=== PATIENT | female | born 1975 | race Two or more races ===

== ENCOUNTER 2016-11-07 14:13 | Inpatient (IN) | payer BC, OTHER, SELFPAY ==
[~2016-11-07] VITALS: Ht 157.5 cm; Wt 38.0 kg
[2016-11-07] MEDS ORDERED: SODIUM CHLORIDE 0.9% 1,000 ML IV ONE (15:05)
[2016-11-07] MEDS ORDERED: SODIUM CHLORIDE FLUSH 10ML SYR IVF ONE (15:30)
[2016-11-07] MEDS ORDERED: SODIUM CHLORIDE 0.9% 1,000ML IVBOLUS ONE ×2 (15:30→17:00)
[2016-11-07 15:36] LABS: ASPARTATE AMINO TRANSFERASE 9 U/L (15-37); BLOOD UREA NITROGEN 13 mg/dL (7-18)
[2016-11-07] MEDS ORDERED: INSULIN SINGLE DOSE, ER SQ-INSULIN ONE (15:59)
[2016-11-07] MEDS ORDERED: INSULIN REGULAR 100 UNITS/ML, 3ML VIAL IVPush ONE (16:00)
[2016-11-07] MEDS ORDERED: OMNIPAQUE 350 MG/ML, 150 ML BOTTLE ONE (17:18)
[2016-11-07] MEDS ORDERED: PANTOPRAZOLE 40 MG IV ONE (17:58)
[2016-11-07] MEDS ORDERED: PANTOPRAZOLE 40 MG IV IVPush ONE (18:00)
[2016-11-07] MEDS ORDERED: SODIUM CHLORIDE 0.9% 1,000 ML IV SCH (19:01)
[2016-11-07 21:00] VITALS: BP 107/67
[2016-11-07] MEDS: ENOXAPARIN 40 MG/0.4 ML SQ SCH (22:33)
[2016-11-07] MEDS: INSULIN ASPART 100 UNITS/ML, PEN SQ-INSULIN SCH (22:34)
[2016-11-08 05:27] VITALS: BP 91/62
[2016-11-08 05:29] LABS: BLOOD UREA NITROGEN 8 mg/dL (7-18)
[2016-11-08 05:33] LABS: ASPARTATE AMINO TRANSFERASE 15 U/L (15-37)
[2016-11-08] MEDS ORDERED: MAGNESIUM SULFATE PMX 2GM/50ML 50 ML IV ONE ×2 (06:00→12:00)
[2016-11-08] MEDS: NS + 20MEQ KCL 1,000 ML IV SCH ×2 (06:14→20:32)
[2016-11-08 07:32] VITALS: BP 92/61
[2016-11-08] MEDS ORDERED: PANTOPRAZOLE 40 MG IV IVPush SCH (09:00)
[2016-11-08] MEDS: INSULIN ASPART 100 UNITS/ML, PEN SQ-INSULIN SCH ×4 (10:13→20:19)
[2016-11-08 13:12] VITALS: BP 95/63
[2016-11-08] MEDS: INSULIN DETEMIR 100 UNITS/ML, PEN SQ-INSULIN SCH (17:41)
[2016-11-08 19:00] VITALS: BP 94/62
[2016-11-08] MEDS: ENOXAPARIN 40 MG/0.4 ML SQ SCH (20:19)
[2016-11-08] MEDS ORDERED: POTASSIUM CHLORIDE 10 MEQ in SODIUM CHLORIDE 0.9% 1,000 ML IV SCH ×2 (20:53)
[2016-11-09 01:35] VITALS: BP 92/60
[2016-11-09] MEDS: INSULIN DETEMIR 100 UNITS/ML, PEN SQ-INSULIN SCH ×2 (02:51→21:16)
[2016-11-09] MEDS: NS + 20MEQ KCL 1,000 ML IV SCH (03:05)
[2016-11-09 06:09] LABS: ASPARTATE AMINO TRANSFERASE 10 U/L (15-37); BLOOD UREA NITROGEN 5 mg/dL (7-18)
[2016-11-09] MEDS: INSULIN ASPART 100 UNITS/ML, PEN SQ-INSULIN SCH ×4 (07:00→21:16)
[2016-11-09] MEDS ORDERED: MAGNESIUM SULFATE PMX 4GM/100M 100 ML IV ONE (08:00)
[2016-11-09] MEDS ORDERED: PROPOFOL 10 MG/ML, 20ML ONE (08:05)
[2016-11-09] MEDS ORDERED: ONDANSETRON 2MG/ML, 2ML IVPush PRN (08:30)
[2016-11-09] MEDS ORDERED: HYDROmorphone 1 MG/ML, 1ML IV PRN (08:30)
[2016-11-09] MEDS ORDERED: OXYcodone 5 MG/5 ML ORAL.SOL UDC PO PRN (08:30)
[2016-11-09] MEDS ORDERED: LABETALOL 5MG/ML, 20ML IV PRN (08:30)
[2016-11-09] MEDS ORDERED: MEPERIDINE/PF 25MG/0.5ML IVPush PRN (08:30)
[2016-11-09] MEDS ORDERED: FENTANYL PF 100 MCG/2ML IV PRN (08:30)
[2016-11-09] MEDS ORDERED: hydrALAzine 20 MG/ML, 1ML IV PRN (08:30)
[2016-11-09] MEDS ORDERED: MIDAZOLAM 1 MG/ML, 2ML IV PRN (08:30)
[2016-11-09 09:56] VITALS: BP 95/65
[2016-11-09] MEDS: FLUCONAZOLE 200 MG/100 ML 100 ML IV SCH (11:32)
[2016-11-09 14:49] VITALS: BP 102/70
[2016-11-09 19:30] VITALS: BP 94/68
[2016-11-09] MEDS: ENOXAPARIN 40 MG/0.4 ML SQ SCH (21:12)
[2016-11-10 02:12] VITALS: BP 90/62
[2016-11-10 05:39] LABS: BLOOD UREA NITROGEN 5 mg/dL (7-18)
[2016-11-10] MEDS ORDERED: NS + 40MEQ KCL 1,000 ML IV SCH (06:00)
[2016-11-10 06:29] VITALS: BP 90/59
[2016-11-10] MEDS: INSULIN ASPART 100 UNITS/ML, PEN SQ-INSULIN SCH ×4 (06:31→22:07)
[2016-11-10] MEDS ORDERED: MAGNESIUM SULFATE PMX 4GM/100M 100 ML IV ONE (07:30)
[2016-11-10] MEDS: PANTOPRAZOLE 40 MG IV IVPush SCH (08:22)
[2016-11-10] MEDS: INSULIN DETEMIR 100 UNITS/ML, PEN SQ-INSULIN SCH ×2 (08:23→22:07)
[2016-11-10] MEDS ORDERED: POTASSIUM PHOS 4.4 MEQ/ML IV SCH (09:00)
[2016-11-10] MEDS: POTASSIUM PHOSPHATE 30 MEQ in SODIUM CHLORIDE 0.9% 500 ML IV SCH ×2 (11:11→22:08)
[2016-11-10] MEDS: FLUCONAZOLE 200 MG/100 ML 100 ML IV SCH (12:30)
[2016-11-10 13:16] VITALS: BP 104/72
[2016-11-10] MEDS: ENOXAPARIN 40 MG/0.4 ML SQ SCH (20:15)
[2016-11-10] MEDS: NS + 40MEQ KCL 1,000 ML IV SCH (21:55)
[2016-11-10 22:30] VITALS: BP 105/73
[2016-11-11 04:45] VITALS: BP 92/57
[2016-11-11 05:19] LABS: BLOOD UREA NITROGEN 2 mg/dL (7-18)
[2016-11-11 05:22] LABS: ASPARTATE AMINO TRANSFERASE 23 U/L (15-37)
[2016-11-11] MEDS: NS + 40MEQ KCL 1,000 ML IV SCH (06:16)
[2016-11-11] MEDS: INSULIN ASPART 100 UNITS/ML, PEN SQ-INSULIN SCH ×4 (06:17→20:53)
[2016-11-11 07:22] VITALS: BP 94/61
[2016-11-11] MEDS ORDERED: FLUCONAZOLE 100 MG TABLET PO SCH (09:00)
[2016-11-11] MEDS: PANTOPRAZOLE 40 MG IV IVPush SCH (09:32)
[2016-11-11] MEDS: INSULIN DETEMIR 100 UNITS/ML, PEN SQ-INSULIN SCH ×2 (09:33→20:54)
[2016-11-11 14:47] VITALS: BP 104/70
[2016-11-11] MEDS ORDERED: MAGNESIUM SULFATE PMX 4GM/100M 100 ML IV ONE (17:30)
[2016-11-11] MEDS: FLUCONAZOLE 200 MG TABLET PO SCH (18:30)
[2016-11-11 19:38] VITALS: BP 94/70
[2016-11-11] MEDS: MAGNESIUM OXIDE 400 MG TABLET PO SCH (20:22)
[2016-11-11] MEDS: ENOXAPARIN 40 MG/0.4 ML SQ SCH (20:23)
[2016-11-11] MEDS ORDERED: INSULIN ASPART 100 UNITS/ML, PEN SQ-INSULIN ONE (21:30)
[2016-11-12 03:03] VITALS: BP 101/68
[2016-11-12] MEDS: INSULIN ASPART 100 UNITS/ML, PEN SQ-INSULIN SCH ×2 (06:29→11:52)
[2016-11-12 07:57] VITALS: BP 97/60
[2016-11-12] MEDS: PANTOPRAZOLE 40 MG IV IVPush SCH (08:46)
[2016-11-12] MEDS: FLUCONAZOLE 200 MG TABLET PO SCH (08:46)
[2016-11-12] MEDS: MAGNESIUM OXIDE 400 MG TABLET PO SCH (08:46)
[2016-11-12] MEDS: INSULIN DETEMIR 100 UNITS/ML, PEN SQ-INSULIN SCH (08:47)
[2016-11-12] MEDS ORDERED: FLUC200T PO (11:56)
[2016-11-12] MEDS ORDERED: OMEP40CA6 PO (11:57)
[2016-11-12] MEDS ORDERED: INSU100V8 SQ (11:57)
[2016-11-12] MEDS ORDERED: MAGN300C PO (11:57)
[2016-11-12] MEDS ORDERED: INSU100C5 SQ-INSULIN (11:58)
[2016-11-12 13:03] VITALS: BP 102/68
[2016-11-12] MEDS ORDERED: PNEUMOCOCCAL 23 VACCINE IM-VACC ONE (14:00)
== END 2016-11-12 13:40 | disposition home or self-care (01) | DRG 368 ==
LOC: ED 16:09 → EDIP 18:09 → 4NOR 20:42
PROVIDERS: ADMIT Internal Medicine; ATTEND Internal Medicine
PROC: 0DB68ZX Excision of Stomach, Via Natural or Artificial Opening Endoscopic, Diagnostic (ICD-10-PCS; principal; 2016-11-09 08:00)
DX: B37.81 Candidal esophagitis (principal); E43 Unspecified severe protein-calorie malnutrition; E87.1 Hypo-osmolality and hyponatremia; K22.10 Ulcer of esophagus without bleeding; E11.649 Type 2 diabetes mellitus with hypoglycemia without coma; E11.65 Type 2 diabetes mellitus with hyperglycemia; E83.42 Hypomagnesemia; E87.6 Hypokalemia; E87.8 Other disorders of electrolyte and fluid balance, not elsewhere classified; K31.7 Polyp of stomach and duodenum; R13.19 Other dysphagia; E83.39 Other disorders of phosphorus metabolism; F41.9 Anxiety disorder, unspecified; L65.9 Nonscarring hair loss, unspecified; D72.829 Elevated white blood cell count, unspecified; E86.0 Dehydration
CPT/HCPCS: 36415; 74022; 74220; 80048; 80053; 81003; 82010; 82803; 82947; 82962; 83036; 83605; 83690; 83735; 84100; 84443; 84703; 85025; 85379; 86480; 88305; 90732; 93005; 96361; 96374; 96375; J1650; J1815; J2704; J3480; Q9967; C9113; J1450; J3475; J7030; J7040; Q0177

== ENCOUNTER 2017-01-28 14:18 | Inpatient (IN) | payer OTHER ==
[~2017-01-28] VITALS: Ht 160 cm; Wt 39.0 kg
[~2017-01-28 14:18] MED LIST: FLUC200T PO; INSU100C5 SQ-INSULIN; INSU100V8 SQ; MAGN300C PO; OMEP40CA6 PO
[2017-01-28] MEDS ORDERED: SODIUM CHLORIDE FLUSH 10ML SYR IVF ONE (14:30)
[2017-01-28] MEDS ORDERED: MAGNESIUM SULFATE 1 GM in SODIUM CHLORIDE 0.9% 100 ML IV ONE (14:30)
[2017-01-28 15:02] LABS: HEMATOCRIT 43.7 % (34.6-47.8); HEMOGLOBIN 14.4 g/dL (11.7-16.4); WHITE BLOOD COUNT 9.6 x10^3/uL (3.4-10)
[2017-01-28 15:14] LABS: BLOOD UREA NITROGEN 14 mg/dL (7-18)
[2017-01-28] MEDS ORDERED: SODIUM CHLORIDE 0.9% 1,000 ML IV ONE (15:30)
[2017-01-28 15:32] LABS: HIV 1&2 ANTIBODY SCREEN Nonreactive (Nonreactive); HIV-1 p24 ANTIGEN Nonreactive (Nonreactive)
[2017-01-28] MEDS ORDERED: ACETAMINOPHEN 325 MG TABLET PO PRN (16:30)
[2017-01-28] MEDS ORDERED: MAGNESIUM SULFATE PMX 4GM/100M 100 ML IV ONE (16:30)
[2017-01-28] MEDS ORDERED: DEXTROSE 4 GM TAB.CHEW PO PRN (16:30)
[2017-01-28] MEDS ORDERED: hydrALAzine 20 MG/ML, 1ML IVPush PRN (16:30)
[2017-01-28] MEDS ORDERED: GLUCAGON 1 MG IM PRN (16:30)
[2017-01-28] MEDS ORDERED: INSULIN DETEMIR 100 UNITS/ML, PEN SQ-INSULIN SCH (16:30)
[2017-01-28] MEDS ORDERED: DEXTROSE 50%, 50ML SYRINGE IVPush PRN (16:30)
[2017-01-28 17:31] VITALS: BP 107/80
[2017-01-28] MEDS: NS + 20MEQ KCL 1,000 ML IV SCH (18:19)
[2017-01-28] MEDS: POTASSIUM CHLORIDE 20 MEQ TAB.ER.PRT PO SCH (18:21)
[2017-01-28 19:25] VITALS: BP 93/65
[2017-01-28 20:29] VITALS: BP 107/80
[2017-01-28] MEDS: SODIUM CHLORIDE FLUSH 10ML SYR IVF SCH (21:00)
[2017-01-28] MEDS: KETOCONAZOLE CRM 2%, 15GM TP SCH (21:25)
[2017-01-28] MEDS: INSULIN ASPART 100 UNITS/ML, PEN SQ-INSULIN SCH (21:25)
[2017-01-29 02:14] VITALS: BP 101/70
[2017-01-29 05:22] LABS: BLOOD UREA NITROGEN 10 mg/dL (7-18)
[2017-01-29] MEDS: NS + 20MEQ KCL 1,000 ML IV SCH ×2 (05:35→11:40)
[2017-01-29] MEDS ORDERED: MAGNESIUM SULFATE PMX 2GM/50ML 50 ML IV ONE (07:00)
[2017-01-29 07:08] VITALS: BP 107/68
[2017-01-29] MEDS: INSULIN ASPART 100 UNITS/ML, PEN SQ-INSULIN SCH ×2 (08:21→12:47)
[2017-01-29] MEDS: POTASSIUM CHLORIDE 20 MEQ TAB.ER.PRT PO SCH (08:21)
[2017-01-29] MEDS: SODIUM CHLORIDE FLUSH 10ML SYR IVF SCH (09:00)
[2017-01-29] MEDS: KETOCONAZOLE CRM 2%, 15GM TP SCH (09:00)
[2017-01-29] MEDS ORDERED: OMEPRAZOLE 20 MG CAPSULE.DR PO SCH (09:00)
[2017-01-29] MEDS ORDERED: MAGNESIUM OXIDE 400 MG TABLET PO SCH (09:00)
[2017-01-29] MEDS ORDERED: GLUCAGON 1 MG IM PRN (16:00)
[2017-01-29] MEDS ORDERED: hydrALAzine 20 MG/ML, 1ML IVPush PRN (16:00)
[2017-01-29] MEDS ORDERED: ACETAMINOPHEN 325 MG TABLET PO PRN (16:00)
[2017-01-29] MEDS ORDERED: DEXTROSE 50%, 50ML SYRINGE IVPush PRN (16:00)
[2017-01-29] MEDS ORDERED: SODIUM CHLORIDE FLUSH 10ML SYR IVF SCH (21:00)
== END 2017-01-29 19:07 | disposition home or self-care (01) | DRG 640 ==
LOC: ED 15:40 → EDIP 15:45 → ED 15:58 → 4WST 17:09
PROVIDERS: ADMIT Hospitalist; ATTEND Hospitalist
DX: E87.1 Hypo-osmolality and hyponatremia (principal); E43 Unspecified severe protein-calorie malnutrition; Z68.1 Body mass index [BMI] 19.9 or less, adult; B35.9 Dermatophytosis, unspecified; E11.65 Type 2 diabetes mellitus with hyperglycemia; E83.41 Hypermagnesemia; E83.42 Hypomagnesemia; E87.6 Hypokalemia; Z79.4 Long term (current) use of insulin
CPT/HCPCS: 36415; 80048; 82040; 82962; 83735; 84100; 84443; 85025; 86703; 87899; 93005; 96374; J1815; J3475; J3480; G0435

== ENCOUNTER 2017-02-18 14:05 | Emergency (ER) | payer OTHER ==
[~2017-02-18] VITALS: Ht 157.5 cm; Wt 33.5 kg
[2017-02-18] MEDS ORDERED: SODIUM CHLORIDE 0.9% 1,000ML IVBOLUS ONE ×2 (15:00)
[2017-02-18 15:13] LABS: HEMATOCRIT 45.6 % (34.6-47.8); HEMOGLOBIN 14.8 g/dL (11.7-16.4); WHITE BLOOD COUNT 12.1 x10^3/uL (3.4-10)
[2017-02-18 15:24] LABS: BLOOD UREA NITROGEN 24 mg/dL (7-18)
[2017-02-18 15:29] LABS: ASPARTATE AMINO TRANSFERASE 42 U/L (15-37)
[2017-02-18 17:05] LABS: PATH.CAST-FLAG NOT PRESENT; SPERM-FLAG NOT PRESENT; SRC-FLAG NOT PRESENT; XTAL-FLAG NOT PRESENT; YLC-FLAG NOT PRESENT
[2017-02-18 17:45] VITALS: BP 113/70
== END 2017-02-18 18:09 | disposition home or self-care (01) ==
LOC: ED 17:45
DX: M79.672 Pain in left foot (principal); M79.671 Pain in right foot; E86.0 Dehydration; E11.65 Type 2 diabetes mellitus with hyperglycemia; B35.9 Dermatophytosis, unspecified
CPT/HCPCS: 36415; 71010; 80053; 81001; 82010; 82803; 82962; 83690; 83880; 85025; 93005; 96360; 96361; 99285; J7030

== ENCOUNTER 2017-02-25 14:40 | Inpatient (IN) | payer OTHER ==
[~2017-02-25] VITALS: Ht 157.5 cm; Wt 33.8 kg
[2017-02-25] MEDS ORDERED: SODIUM CHLORIDE 0.9% 1,000ML IVBOLUS ONE ×2 (16:00→17:00)
[2017-02-25] MEDS ORDERED: ONDANSETRON 2MG/ML, 2ML IVPush ONE (16:00)
[2017-02-25] MEDS ORDERED: FAMOTIDINE 20 MG/2 ML IVP ONE (16:00)
[2017-02-25] MEDS ORDERED: SODIUM CHLORIDE FLUSH 10ML SYR IVF ONE (16:00)
[2017-02-25 16:10] LABS: HEMATOCRIT 44.8 % (34.6-47.8); HEMOGLOBIN 14.5 g/dL (11.7-16.4); WHITE BLOOD COUNT 14.7 x10^3/uL (3.4-10)
[2017-02-25 16:20] LABS: ASPARTATE AMINO TRANSFERASE 36 U/L (15-37); BLOOD UREA NITROGEN 29 mg/dL (7-18)
[2017-02-25] MEDS ORDERED: ONDANSETRON 2MG/ML, 2ML ONE (16:48)
[2017-02-25] MEDS ORDERED: FAMOTIDINE 20 MG/2 ML ONE (16:48)
[2017-02-25] MEDS ORDERED: MAGNESIUM SULFATE PMX 2GM/50ML 50 ML IV ONE (17:00)
[2017-02-25] MEDS ORDERED: SODIUM CHLORIDE 0.9% 1,000 ML IV ONE (17:07)
[2017-02-25] MEDS ORDERED: SODIUM CHLORIDE FLUSH 10ML SYR IVF PRN (17:30)
[2017-02-25] MEDS ORDERED: INSULIN ASPART 100 UNITS/ML, PEN SQ-INSULIN SCH (18:00)
[2017-02-25] MEDS ORDERED: ONDANSETRON ODT 4 MG PO PRN (18:00)
[2017-02-25] MEDS ORDERED: ACETAMINOPHEN 325 MG TABLET PO PRN (18:00)
[2017-02-25] MEDS ORDERED: DOCUSATE 100 MG CAPSULE PO PRN (18:00)
[2017-02-25] MEDS ORDERED: TEMAZEPAM 15 MG CAPSULE PO PRN (18:00)
[2017-02-25 20:00] VITALS: BP 111/80
[2017-02-25] MEDS: INSULIN DETEMIR 100 UNITS/ML, PEN SQ-INSULIN SCH ×2 (21:00→21:38)
[2017-02-25] MEDS: ENOXAPARIN 40 MG/0.4 ML SQ SCH (21:36)
[2017-02-25] MEDS: SODIUM CHLORIDE 0.9% 1,000 ML IV SCH (21:37)
[2017-02-25] MEDS: INSULIN ASPART 100 UNITS/ML, PEN SQ-INSULIN SCH (21:38)
[2017-02-26 02:00] VITALS: BP 103/72
[2017-02-26] MEDS: SODIUM CHLORIDE 0.9% 1,000 ML IV SCH (05:25)
[2017-02-26 05:40] LABS: HEMATOCRIT 35.4 % (34.6-47.8); HEMOGLOBIN 11.7 g/dL (11.7-16.4); WHITE BLOOD COUNT 11.1 x10^3/uL (3.4-10)
[2017-02-26 05:50] LABS: BLOOD UREA NITROGEN 20 mg/dL (7-18)
[2017-02-26] MEDS ORDERED: MAGNESIUM SULFATE PMX 4GM/100M 100 ML IV ONE (07:00)
[2017-02-26] MEDS ORDERED: POTASSIUM CHLORIDE 40 MEQ in SODIUM CHLORIDE 0.9% 500 ML IV SCH (07:00)
[2017-02-26 07:20] VITALS: BP 112/78
[2017-02-26] MEDS ORDERED: POTASSIUM PHOSPHATE 44 MEQ in SODIUM CHLORIDE 0.9% 500 ML IV ONE ×2 (07:30→20:00)
[2017-02-26] MEDS ORDERED: POTASSIUM CHLORIDE 20 MEQ TAB.ER.PRT PO ONE (07:30)
[2017-02-26] MEDS: INSULIN ASPART 100 UNITS/ML, PEN SQ-INSULIN SCH ×4 (08:08→21:00)
[2017-02-26 13:09] VITALS: BP 106/74
[2017-02-26 17:46] VITALS: BP 111/80
[2017-02-26 18:36] VITALS: BP 96/66
[2017-02-26] MEDS: INSULIN DETEMIR 100 UNITS/ML, PEN SQ-INSULIN SCH (20:59)
[2017-02-26] MEDS: ENOXAPARIN 40 MG/0.4 ML SQ SCH (20:59)
[2017-02-27] MEDS: SODIUM CHLORIDE 0.9% 1,000 ML IV SCH ×3 (00:50→21:25)
[2017-02-27 02:25] VITALS: BP 100/76
[2017-02-27 05:48] LABS: BLOOD UREA NITROGEN 8 mg/dL (7-18)
[2017-02-27 07:05] VITALS: BP 113/78
[2017-02-27] MEDS: INSULIN ASPART 100 UNITS/ML, PEN SQ-INSULIN SCH ×4 (08:21→21:43)
[2017-02-27 11:53] VITALS: BP_SYST 118; BP_SYST 126; BP_SYST 94; BP_DIAS 68; BP_DIAS 83; BP_DIAS 87
[2017-02-27] MEDS ORDERED: SODIUM CHLORIDE 0.9%, 500ML IVBOLUS ONE ×2 (12:00→17:30)
[2017-02-27] MEDS ORDERED: POTASSIUM PHOSPHATE 44 MEQ in SODIUM CHLORIDE 0.9% 500 ML IV ONE (12:00)
[2017-02-27] MEDS ORDERED: SODIUM CHLORIDE 0.9% IV ONE (12:00)
[2017-02-27] MEDS ORDERED: POTASSIUM PHOSPHATE IV ONE (12:00)
[2017-02-27] MEDS ORDERED: MAGNESIUM SULFATE IV ONE (12:00)
[2017-02-27] MEDS ORDERED: MAGNESIUM SULFATE 6 GM in SODIUM CHLORIDE 0.9% 150 ML IV ONE (12:00)
[2017-02-27] MEDS: GABAPENTIN 100 MG CAPSULE PO SCH ×3 (13:11→20:08)
[2017-02-27] MEDS: POTASSIUM CHLORIDE 20 MEQ TAB.ER.PRT PO SCH ×2 (13:11→14:35)
[2017-02-27 13:29] VITALS: BP 107/74
[2017-02-27 18:52] VITALS: BP 116/83
[2017-02-27] MEDS: ENOXAPARIN 40 MG/0.4 ML SQ SCH (20:08)
[2017-02-27] MEDS: INSULIN DETEMIR 100 UNITS/ML, PEN SQ-INSULIN SCH (21:42)
[2017-02-28] MEDS: SODIUM CHLORIDE 0.9% 1,000 ML IV SCH ×3 (03:24→20:29)
[2017-02-28 03:55] VITALS: BP 127/82
[2017-02-28 06:04] LABS: HEMATOCRIT 42.3 % (34.6-47.8); HEMOGLOBIN 13.8 g/dL (11.7-16.4); WHITE BLOOD COUNT 12.6 x10^3/uL (3.4-10)
[2017-02-28 06:07] LABS: BLOOD UREA NITROGEN 5 mg/dL (7-18)
[2017-02-28 06:10] LABS: ASPARTATE AMINO TRANSFERASE 27 U/L (15-37)
[2017-02-28] MEDS: INSULIN ASPART 100 UNITS/ML, PEN SQ-INSULIN SCH ×4 (07:00→20:30)
[2017-02-28 07:15] VITALS: BP 108/63
[2017-02-28] MEDS ORDERED: DEXTROSE 4 GM TAB.CHEW PO PRN (08:30)
[2017-02-28] MEDS ORDERED: GLUCAGON 1 MG IM PRN (08:30)
[2017-02-28] MEDS ORDERED: SODIUM CHLORIDE 0.9%, 500ML IVBOLUS ONE (08:30)
[2017-02-28] MEDS: GABAPENTIN 100 MG CAPSULE PO SCH (08:42)
[2017-02-28] MEDS: SODIUM CHLORIDE FLUSH 10ML SYR IVF SCH ×2 (08:45→20:31)
[2017-02-28 13:10] VITALS: BP 105/72
[2017-02-28] MEDS: GABAPENTIN 300 MG CAPSULE PO SCH ×2 (17:14→20:29)
[2017-02-28 20:01] VITALS: BP 101/70
[2017-02-28] MEDS: INSULIN DETEMIR 100 UNITS/ML, PEN SQ-INSULIN SCH (20:29)
[2017-02-28] MEDS: ENOXAPARIN 40 MG/0.4 ML SQ SCH (20:29)
[2017-03-01] VITALS (12 sets, daily range): BP systolic 72–118; BP diastolic 46–83
[2017-03-01] MEDS: SODIUM CHLORIDE 0.9% 1,000 ML IV SCH (03:05)
[2017-03-01] MEDS: INSULIN ASPART 100 UNITS/ML, PEN SQ-INSULIN SCH ×4 (07:00→20:57)
[2017-03-01] MEDS ORDERED: SODIUM CHLORIDE 0.9%, 500ML IVBOLUS ONE ×2 (08:30→22:00)
[2017-03-01] MEDS: DEXTROSE 50%, 50ML SYRINGE IVPush PRN ×3 (08:43→09:22)
[2017-03-01] MEDS: SODIUM CHLORIDE FLUSH 10ML SYR IVF SCH ×2 (08:58→20:56)
[2017-03-01] MEDS: GABAPENTIN 300 MG CAPSULE PO SCH ×3 (08:58→20:57)
[2017-03-01] MEDS ORDERED: DEXTROSE 50%, 50ML SYRINGE IVPush ONE (09:30)
[2017-03-01] MEDS ORDERED: DEXTROSE 10% 1,000 ML IV SCH ×2 (09:30)
[2017-03-01 09:47] LABS: HEMATOCRIT 31.3 % (34.6-47.8); HEMOGLOBIN 10.3 g/dL (11.7-16.4); WHITE BLOOD COUNT 8.2 x10^3/uL (3.4-10)
[2017-03-01 11:03] LABS: BLOOD UREA NITROGEN 6 mg/dL (7-18)
[2017-03-01 11:05] LABS: ASPARTATE AMINO TRANSFERASE 14 U/L (15-37)
[2017-03-01] MEDS ORDERED: MAGNESIUM SULFATE 4 GM in SODIUM CHLORIDE 0.9% 100 ML IV ONE (12:30)
[2017-03-01] MEDS: POTASSIUM CHLORIDE 20 MEQ TAB.ER.PRT PO SCH ×2 (13:19→16:38)
[2017-03-01] MEDS ORDERED: SODIUM CHLORIDE 0.9% IV ONE (13:31)
[2017-03-01] MEDS ORDERED: MAGNESIUM SULFATE IV ONE (13:31)
[2017-03-01] MEDS ORDERED: POTASSIUM PHOSPHATE 44 MEQ in SODIUM CHLORIDE 0.9% 500 ML IV ONE (16:30)
[2017-03-01] MEDS: ENOXAPARIN 40 MG/0.4 ML SQ SCH (20:57)
[2017-03-01] MEDS: INSULIN DETEMIR 100 UNITS/ML, PEN SQ-INSULIN SCH (20:57)
[2017-03-01] MEDS ORDERED: POTASSIUM CHLORIDE 20 MEQ TAB.ER.PRT PO SCH (21:00)
[2017-03-02 02:06] VITALS: BP_SYST 106; BP_SYST 86; BP_DIAS 64; BP_DIAS 69
[2017-03-02 02:07] VITALS: BP 111/80
[2017-03-02] MEDS: DEXTROSE 5% 1,000 ML IV SCH ×3 (02:58→20:00)
[2017-03-02 06:07] LABS: ASPARTATE AMINO TRANSFERASE 13 U/L (15-37); BLOOD UREA NITROGEN 6 mg/dL (7-18)
[2017-03-02 06:11] LABS: HEMATOCRIT 36.3 % (34.6-47.8); HEMOGLOBIN 11.8 g/dL (11.7-16.4); WHITE BLOOD COUNT 9.1 x10^3/uL (3.4-10)
[2017-03-02] MEDS: INSULIN ASPART 100 UNITS/ML, PEN SQ-INSULIN SCH ×4 (08:15→20:55)
[2017-03-02] MEDS: GABAPENTIN 300 MG CAPSULE PO SCH ×3 (08:15→20:56)
[2017-03-02] MEDS: SODIUM CHLORIDE FLUSH 10ML SYR IVF SCH ×2 (08:19→20:56)
[2017-03-02 08:54] VITALS: BP 109/78
[2017-03-02 09:58] VITALS: BP_SYST 76; BP_SYST 80; BP_SYST 98; BP_DIAS 49; BP_DIAS 54; BP_DIAS 71
[2017-03-02] MEDS ORDERED: MAGNESIUM SULFATE PMX 2GM/50ML 50 ML IV ONE (14:00)
[2017-03-02 14:10] VITALS: BP 107/76
[2017-03-02 18:58] VITALS: BP 122/79
[2017-03-02] MEDS: INSULIN DETEMIR 100 UNITS/ML, PEN SQ-INSULIN SCH (20:54)
[2017-03-02] MEDS: ENOXAPARIN 40 MG/0.4 ML SQ SCH (20:55)
[2017-03-03] VITALS (8 sets, daily range): BP systolic 79–110; BP diastolic 54–79
[2017-03-03] MEDS: DEXTROSE 5% 1,000 ML IV SCH ×2 (04:00→17:23)
[2017-03-03] MEDS: INSULIN ASPART 100 UNITS/ML, PEN SQ-INSULIN SCH ×4 (07:00→20:48)
[2017-03-03 07:12] LABS: HEMATOCRIT 37.7 % (34.6-47.8); HEMOGLOBIN 12.4 g/dL (11.7-16.4); WHITE BLOOD COUNT 9.4 x10^3/uL (3.4-10)
[2017-03-03 07:21] LABS: BLOOD UREA NITROGEN 7 mg/dL (7-18)
[2017-03-03 07:22] LABS: ASPARTATE AMINO TRANSFERASE 36 U/L (15-37)
[2017-03-03] MEDS: GABAPENTIN 300 MG CAPSULE PO SCH ×3 (09:30→20:46)
[2017-03-03] MEDS: SODIUM CHLORIDE FLUSH 10ML SYR IVF SCH ×2 (09:30→20:43)
[2017-03-03] MEDS ORDERED: MAGNESIUM SULFATE PMX 4GM/100M 100 ML IV ONE (16:30)
[2017-03-03] MEDS ORDERED: DEXTROSE 4 GM TAB.CHEW PO PRN (20:00)
[2017-03-03] MEDS ORDERED: TEMAZEPAM 15 MG CAPSULE PO PRN (20:00)
[2017-03-03] MEDS ORDERED: DOCUSATE 100 MG CAPSULE PO PRN (20:00)
[2017-03-03] MEDS ORDERED: ACETAMINOPHEN 325 MG TABLET PO PRN (20:00)
[2017-03-03] MEDS ORDERED: DEXTROSE 50%, 50ML SYRINGE IVPush PRN (20:00)
[2017-03-03] MEDS ORDERED: SODIUM CHLORIDE 0.9% 1,000 ML IV SCH (20:00)
[2017-03-03] MEDS ORDERED: MAGNESIUM SULFATE PMX 2GM/50ML 50 ML IV ONE (20:00)
[2017-03-03] MEDS ORDERED: GLUCAGON 1 MG IM PRN (20:00)
[2017-03-03] MEDS: SODIUM CHLORIDE 0.9% 1,000 ML IV SCH (20:42)
[2017-03-03] MEDS: ENOXAPARIN 40 MG/0.4 ML SQ SCH (20:47)
[2017-03-03] MEDS: INSULIN DETEMIR 100 UNITS/ML, PEN SQ-INSULIN SCH (20:48)
[2017-03-03] MEDS ORDERED: INSULIN DETEMIR 100 UNITS/ML, PEN SQ-INSULIN SCH ×2 (21:00)
[2017-03-04 02:00] VITALS: BP 94/63
[2017-03-04] MEDS: SODIUM CHLORIDE 0.9% 1,000 ML IV SCH ×4 (03:04→23:58)
[2017-03-04 04:00] VITALS: BP 91/62
[2017-03-04 04:05] VITALS: BP 97/67
[2017-03-04 05:15] LABS: HEMOGLOBIN 11.7 g/dL (11.7-16.4)
[2017-03-04 05:16] LABS: BLOOD UREA NITROGEN 10 mg/dL (7-18)
[2017-03-04 05:20] LABS: ASPARTATE AMINO TRANSFERASE 61 U/L (15-37)
[2017-03-04] MEDS: INSULIN ASPART 100 UNITS/ML, PEN SQ-INSULIN SCH ×4 (07:00→20:41)
[2017-03-04 08:00] VITALS: BP_SYST 103; BP_SYST 60; BP_SYST 81; BP_DIAS 32; BP_DIAS 49; BP_DIAS 68
[2017-03-04] MEDS: SODIUM CHLORIDE FLUSH 10ML SYR IVF SCH ×2 (09:02→20:41)
[2017-03-04] MEDS: GABAPENTIN 300 MG CAPSULE PO SCH ×3 (09:02→20:39)
[2017-03-04] MEDS ORDERED: FLUDROCORTISONE 0.1 MG TABLET PO SCH (12:00)
[2017-03-04 14:56] VITALS: BP 98/62
[2017-03-04 19:30] VITALS: BP 104/68
[2017-03-04] MEDS ORDERED: DEXTROSE 4 GM TAB.CHEW PO PRN (20:00)
[2017-03-04] MEDS ORDERED: GLUCAGON 1 MG IM PRN (20:00)
[2017-03-04] MEDS ORDERED: ACETAMINOPHEN 325 MG TABLET PO PRN (20:00)
[2017-03-04] MEDS ORDERED: DEXTROSE 50%, 50ML SYRINGE IVPush PRN (20:00)
[2017-03-04] MEDS ORDERED: DOCUSATE 100 MG CAPSULE PO PRN (20:00)
[2017-03-04] MEDS ORDERED: TEMAZEPAM 15 MG CAPSULE PO PRN (20:00)
[2017-03-04] MEDS: ENOXAPARIN 40 MG/0.4 ML SQ SCH (20:39)
[2017-03-04] MEDS: INSULIN DETEMIR 100 UNITS/ML, PEN SQ-INSULIN SCH (20:40)
[2017-03-05 01:57] VITALS: BP 106/72
[2017-03-05 05:14] LABS: HEMATOCRIT 31.1 % (34.6-47.8); HEMOGLOBIN 10.4 g/dL (11.7-16.4); WHITE BLOOD COUNT 9.3 x10^3/uL (3.4-10)
[2017-03-05 05:25] LABS: ASPARTATE AMINO TRANSFERASE 52 U/L (15-37); BLOOD UREA NITROGEN 8 mg/dL (7-18)
[2017-03-05] MEDS: INSULIN ASPART 100 UNITS/ML, PEN SQ-INSULIN SCH ×4 (07:00→20:29)
[2017-03-05 07:19] VITALS: BP 108/74
[2017-03-05] MEDS: GABAPENTIN 300 MG CAPSULE PO SCH ×3 (08:11→20:28)
[2017-03-05] MEDS: SODIUM CHLORIDE 0.9% 1,000 ML IV SCH ×2 (08:12→20:30)
[2017-03-05] MEDS: SODIUM CHLORIDE FLUSH 10ML SYR IVF SCH ×2 (08:12→20:29)
[2017-03-05] MEDS ORDERED: MAGNESIUM SULFATE PMX 4GM/100M 100 ML IV ONE (09:00)
[2017-03-05] MEDS: FLUDROCORTISONE 0.1 MG TABLET PO SCH (10:04)
[2017-03-05 13:51] VITALS: BP 122/87
[2017-03-05] MEDS ORDERED: POTASSIUM CHLORIDE 20 MEQ TAB.ER.PRT PO ONE (19:30)
[2017-03-05 19:33] VITALS: BP 115/78
[2017-03-05] MEDS: INSULIN DETEMIR 100 UNITS/ML, PEN SQ-INSULIN SCH (20:28)
[2017-03-05] MEDS: ENOXAPARIN 40 MG/0.4 ML SQ SCH (20:28)
[2017-03-06] MEDS ORDERED: MAGNESIUM SULFATE PMX 4GM/100M 100 ML IV ONE (01:00)
[2017-03-06 01:09] VITALS: BP 122/63
[2017-03-06] MEDS: SODIUM CHLORIDE 0.9% 1,000 ML IV SCH (04:14)
[2017-03-06 05:28] LABS: ASPARTATE AMINO TRANSFERASE 34 U/L (15-37); BLOOD UREA NITROGEN 5 mg/dL (7-18)
[2017-03-06] MEDS ORDERED: POTASSIUM CHLORIDE 20 MEQ TAB.ER.PRT PO STA (06:18)
[2017-03-06] MEDS: INSULIN ASPART 100 UNITS/ML, PEN SQ-INSULIN SCH ×4 (07:00→21:51)
[2017-03-06 08:15] VITALS: BP 117/83
[2017-03-06] MEDS: SODIUM CHLORIDE FLUSH 10ML SYR IVF SCH ×2 (09:00→21:51)
[2017-03-06] MEDS: FLUDROCORTISONE 0.1 MG TABLET PO SCH (10:08)
[2017-03-06] MEDS: NS + 20MEQ KCL 1,000 ML IV SCH ×2 (10:08→22:39)
[2017-03-06] MEDS: SPIRONOLACTONE 25 MG TABLET PO SCH (10:08)
[2017-03-06] MEDS: GABAPENTIN 300 MG CAPSULE PO SCH ×3 (10:09→21:49)
[2017-03-06 14:08] VITALS: BP 119/81
[2017-03-06] MEDS: CHOLESTYRAMINE LIGHT 4GM PACKET PO SCH (16:30)
[2017-03-06 20:00] VITALS: BP 124/83
[2017-03-06] MEDS: ENOXAPARIN 40 MG/0.4 ML SQ SCH (21:50)
[2017-03-06] MEDS: INSULIN DETEMIR 100 UNITS/ML, PEN SQ-INSULIN SCH (21:51)
[2017-03-07] VITALS (10 sets, daily range): BP systolic 85–126; BP diastolic 56–89
[2017-03-07 06:13] LABS: BLOOD UREA NITROGEN 6 mg/dL (7-18)
[2017-03-07] MEDS: INSULIN ASPART 100 UNITS/ML, PEN SQ-INSULIN SCH ×4 (07:00→22:20)
[2017-03-07] MEDS: CHOLESTYRAMINE LIGHT 4GM PACKET PO SCH ×2 (08:05→17:31)
[2017-03-07] MEDS: FLUDROCORTISONE 0.1 MG TABLET PO SCH (08:05)
[2017-03-07] MEDS: GABAPENTIN 300 MG CAPSULE PO SCH ×3 (08:06→22:19)
[2017-03-07] MEDS: SPIRONOLACTONE 25 MG TABLET PO SCH (08:06)
[2017-03-07] MEDS: SODIUM CHLORIDE FLUSH 10ML SYR IVF SCH ×2 (08:08→22:20)
[2017-03-07] MEDS ORDERED: MAGNESIUM SULFATE 3 GM in SODIUM CHLORIDE 0.9% 100 ML IV STA (08:32)
[2017-03-07] MEDS ORDERED: MAGNESIUM SULFATE PMX 4GM/100M 100 ML IV ONE (09:35)
[2017-03-07] MEDS: NS + 20MEQ KCL 1,000 ML IV SCH (15:30)
[2017-03-07] MEDS: INSULIN DETEMIR 100 UNITS/ML, PEN SQ-INSULIN SCH (22:19)
[2017-03-07] MEDS: ENOXAPARIN 40 MG/0.4 ML SQ SCH (22:19)
[2017-03-08] MEDS: NS + 20MEQ KCL 1,000 ML IV SCH ×3 (01:36→20:30)
[2017-03-08 02:00] VITALS: BP 120/89
[2017-03-08 06:38] LABS: HEMATOCRIT 34.8 % (34.6-47.8); HEMOGLOBIN 11.6 g/dL (11.7-16.4); WHITE BLOOD COUNT 8.4 x10^3/uL (3.4-10)
[2017-03-08 06:49] LABS: BLOOD UREA NITROGEN 9 mg/dL (7-18)
[2017-03-08] MEDS: INSULIN ASPART 100 UNITS/ML, PEN SQ-INSULIN SCH ×4 (07:00→23:06)
[2017-03-08 08:37] VITALS: BP 118/80
[2017-03-08] MEDS: SODIUM CHLORIDE FLUSH 10ML SYR IVF SCH ×2 (09:06→21:00)
[2017-03-08] MEDS: GABAPENTIN 300 MG CAPSULE PO SCH ×3 (09:06→23:04)
[2017-03-08] MEDS: FLUDROCORTISONE 0.1 MG TABLET PO SCH (09:06)
[2017-03-08] MEDS: CHOLESTYRAMINE LIGHT 4GM PACKET PO SCH ×2 (09:06→16:33)
[2017-03-08] MEDS: SPIRONOLACTONE 25 MG TABLET PO SCH (09:06)
[2017-03-08] MEDS ORDERED: MAGNESIUM SULFATE PMX 4GM/100M 100 ML IV ONE (10:30)
[2017-03-08] MEDS: MAGNESIUM OXIDE 400 MG TABLET PO SCH ×2 (11:47→23:03)
[2017-03-08] MEDS: MIDODRINE 5 MG TABLET PO SCH ×3 (11:47→23:04)
[2017-03-08 15:16] VITALS: BP 112/76
[2017-03-08 16:51] VITALS: BP_SYST 105; BP_SYST 116; BP_SYST 99; BP_DIAS 62; BP_DIAS 65; BP_DIAS 72
[2017-03-08] MEDS: PANCRELIPASE 5000 CAPSULE.DR PO SCH (17:12)
[2017-03-08 20:00] VITALS: BP 109/78
[2017-03-08] MEDS: ENOXAPARIN 40 MG/0.4 ML SQ SCH (23:04)
[2017-03-08] MEDS: INSULIN DETEMIR 100 UNITS/ML, PEN SQ-INSULIN SCH (23:05)
[2017-03-09 02:33] VITALS: BP 126/88
[2017-03-09] MEDS: NS + 20MEQ KCL 1,000 ML IV SCH (05:12)
[2017-03-09 06:16] LABS: BLOOD UREA NITROGEN 9 mg/dL (7-18)
[2017-03-09] MEDS: INSULIN ASPART 100 UNITS/ML, PEN SQ-INSULIN SCH ×4 (07:00→21:04)
[2017-03-09 07:40] VITALS: BP_SYST 113; BP_SYST 73; BP_SYST 82; BP_DIAS 47; BP_DIAS 54; BP_DIAS 77
[2017-03-09] MEDS: CHOLESTYRAMINE LIGHT 4GM PACKET PO SCH ×2 (07:54→16:30)
[2017-03-09] MEDS ORDERED: MAGNESIUM SULFATE PMX 4GM/100M 100 ML IV ONE (08:30)
[2017-03-09] MEDS: MIDODRINE 5 MG TABLET PO SCH ×3 (09:24→21:03)
[2017-03-09] MEDS: FLUDROCORTISONE 0.1 MG TABLET PO SCH (09:24)
[2017-03-09] MEDS: MAGNESIUM OXIDE 400 MG TABLET PO SCH ×2 (09:24→21:03)
[2017-03-09] MEDS: GABAPENTIN 300 MG CAPSULE PO SCH ×3 (09:24→21:03)
[2017-03-09] MEDS: SPIRONOLACTONE 25 MG TABLET PO SCH (09:24)
[2017-03-09] MEDS: PANCRELIPASE 5000 CAPSULE.DR PO SCH ×3 (09:24→18:20)
[2017-03-09] MEDS: SODIUM CHLORIDE FLUSH 10ML SYR IVF SCH ×2 (09:28→20:08)
[2017-03-09 18:50] VITALS: BP 96/65
[2017-03-09] MEDS: POTASSIUM CHLORIDE 20 MEQ in SODIUM CHLORIDE 0.9% 1,000 ML IV SCH (20:08)
[2017-03-09] MEDS: ENOXAPARIN 40 MG/0.4 ML SQ SCH (21:03)
[2017-03-09] MEDS: INSULIN DETEMIR 100 UNITS/ML, PEN SQ-INSULIN SCH (21:04)
[2017-03-10] VITALS (11 sets, daily range): BP systolic 81–121; BP diastolic 50–91
[2017-03-10] MEDS: POTASSIUM CHLORIDE 20 MEQ in SODIUM CHLORIDE 0.9% 1,000 ML IV SCH ×2 (05:13→16:27)
[2017-03-10 05:49] LABS: BLOOD UREA NITROGEN 8 mg/dL (7-18)
[2017-03-10] MEDS: INSULIN ASPART 100 UNITS/ML, PEN SQ-INSULIN SCH ×4 (07:00→20:51)
[2017-03-10] MEDS: CHOLESTYRAMINE LIGHT 4GM PACKET PO SCH ×2 (07:52→16:27)
[2017-03-10] MEDS: GABAPENTIN 300 MG CAPSULE PO SCH ×3 (08:48→20:49)
[2017-03-10] MEDS: PANCRELIPASE 5000 CAPSULE.DR PO SCH ×3 (08:48→17:16)
[2017-03-10] MEDS: FLUDROCORTISONE 0.1 MG TABLET PO SCH (08:48)
[2017-03-10] MEDS: MIDODRINE 5 MG TABLET PO SCH ×3 (08:48→20:49)
[2017-03-10] MEDS: MAGNESIUM OXIDE 400 MG TABLET PO SCH ×2 (08:48→20:49)
[2017-03-10] MEDS: SPIRONOLACTONE 25 MG TABLET PO SCH (08:48)
[2017-03-10] MEDS: SODIUM CHLORIDE FLUSH 10ML SYR IVF SCH ×2 (08:49→21:00)
[2017-03-10 10:07] LABS: ALDOSTERONE <1.0 ng/dL (0.0-30.0)
[2017-03-10] MEDS: ENOXAPARIN 40 MG/0.4 ML SQ SCH (20:49)
[2017-03-10] MEDS: INSULIN DETEMIR 100 UNITS/ML, PEN SQ-INSULIN SCH (20:50)
[2017-03-11 02:38] VITALS: BP 125/80
[2017-03-11 05:19] LABS: HEMATOCRIT 33.5 % (34.6-47.8); HEMOGLOBIN 11.1 g/dL (11.7-16.4); WHITE BLOOD COUNT 6.9 x10^3/uL (3.4-10)
[2017-03-11 05:38] LABS: BLOOD UREA NITROGEN 8 mg/dL (7-18)
[2017-03-11] MEDS: POTASSIUM CHLORIDE 20 MEQ in SODIUM CHLORIDE 0.9% 1,000 ML IV SCH (05:52)
[2017-03-11] MEDS: INSULIN ASPART 100 UNITS/ML, PEN SQ-INSULIN SCH ×2 (07:00→11:37)
[2017-03-11 08:03] VITALS: BP 144/96
[2017-03-11] MEDS ORDERED: MIDO5TAB PO (08:10)
[2017-03-11] MEDS ORDERED: MAGN400T26 PO (08:10)
[2017-03-11] MEDS ORDERED: CHOL239. PO (08:10)
[2017-03-11] MEDS ORDERED: GABA300C10 PO (08:10)
[2017-03-11] MEDS ORDERED: SPIR25TA PO (08:10)
[2017-03-11] MEDS ORDERED: TEMA15CA6 PO (08:10)
[2017-03-11] MEDS ORDERED: LIPA1CAP17 PO (08:10)
[2017-03-11] MEDS ORDERED: FLUD0.1T PO (08:10)
[2017-03-11] MEDS ORDERED: INSU100I28 SQ-INSULIN (08:10)
[2017-03-11] MEDS: FLUDROCORTISONE 0.1 MG TABLET PO SCH (08:58)
[2017-03-11] MEDS: GABAPENTIN 300 MG CAPSULE PO SCH (08:58)
[2017-03-11] MEDS: MIDODRINE 5 MG TABLET PO SCH (08:58)
[2017-03-11] MEDS: SPIRONOLACTONE 25 MG TABLET PO SCH (08:58)
[2017-03-11] MEDS: MAGNESIUM OXIDE 400 MG TABLET PO SCH (08:58)
[2017-03-11] MEDS: PANCRELIPASE 5000 CAPSULE.DR PO SCH ×2 (08:58→11:26)
[2017-03-11] MEDS: CHOLESTYRAMINE LIGHT 4GM PACKET PO SCH (08:58)
[2017-03-11] MEDS: SODIUM CHLORIDE FLUSH 10ML SYR IVF SCH (08:58)
== END 2017-03-11 12:45 | disposition home or self-care (01) | DRG 682 ==
LOC: ED 16:22 → EDIP 17:07 → 4WST 18:27
PROVIDERS: ADMIT Hospitalist; ATTEND Family Medicine
DX: N17.0 Acute kidney failure with tubular necrosis (principal); E43 Unspecified severe protein-calorie malnutrition; E87.3 Alkalosis; E10.42 Type 1 diabetes mellitus with diabetic polyneuropathy; B35.9 Dermatophytosis, unspecified; D72.829 Elevated white blood cell count, unspecified; E87.0 Hyperosmolality and hypernatremia; E10.65 Type 1 diabetes mellitus with hyperglycemia; E83.39 Other disorders of phosphorus metabolism; E83.42 Hypomagnesemia; R62.7 Adult failure to thrive; I95.1 Orthostatic hypotension; I95.0 Idiopathic hypotension; E87.6 Hypokalemia; R19.7 Diarrhea, unspecified; L63.9 Alopecia areata, unspecified; R00.0 Tachycardia, unspecified; Z83.2 Family history of diseases of the blood and blood-forming organs and certain disorders involving the immune mechanism; Z68.1 Body mass index [BMI] 19.9 or less, adult; Z83.3 Family history of diabetes mellitus; Z79.4 Long term (current) use of insulin
CPT/HCPCS: 36415; 71010; 80048; 80053; 81001; 81003; 82010; 82088; 82310; 82436; 82533; 82705; 82710; 82800; 82947; 82962; 83036; 83605; 83690; 83735; 83880; 84100; 84133; 84244; 84300; 84443; 84703; 85025; 87040; 87046; 87324; 87899; 89055; 93005; 93306; 96361; 96374; 96375; J1650; J1815; J2405; J3475; J3480; J7070; J7030; J7040; S0028

== ENCOUNTER 2017-04-03 09:17 | Inpatient (IN) | payer OTHER ==
[~2017-04-03] VITALS: Ht 162.6 cm; Wt 51.8 kg
[~2017-04-03 09:17] MED LIST changes: +CHOL239. PO; +FLUD0.1T PO; +GABA300C10 PO; +INSU100I28 SQ-INSULIN; +LIPA1CAP17 PO; +MAGN400T26 PO; +MIDO5TAB PO; +SPIR25TA PO; +TEMA15CA6 PO
[2017-04-03] MEDS ORDERED: ONDANSETRON 2MG/ML, 2ML ONE (09:46)
[2017-04-03] MEDS ORDERED: ONDANSETRON 2MG/ML, 2ML IVPush ONE (10:00)
[2017-04-03] MEDS ORDERED: SODIUM CHLORIDE 0.9% 1,000ML IVBOLUS ONE ×3 (10:00→12:00)
[2017-04-03 10:47] LABS: PH, VENOUS 7.274 pH (7.320-7.420)
[2017-04-03 10:49] LABS: BASOPHILS # (AUTO) 0.01 x10^3/uL (0-0.1); BASOPHILS % (AUTO) 0 % (0-1); EOSINOPHILS % (AUTO) 0 % (1-7); LYMPHOCYTES # (AUTO) 1.33 x10^3/uL (1-3.4); LYMPHOCYTES % (AUTO) 8 % (22-44); MD NO; MEAN CORPUSCULAR HEMOGLOBIN 27.6 pg (27.0-34.8); MEAN CORPUSCULAR HGB CONC 32.1 g/dL (32.4-35.8); MEAN CORPUSCULAR VOLUME 85.7 fL (80-100); MEAN PLATELET VOLUME 7.2 fL (7.4-10.4); MONOCYTES # (AUTO) 0.45 x10^3/uL (0.2-0.8); MONOCYTES % (AUTO) 3 % (2-9); NEUTROPHILS # (AUTO) 15.35 x10^3/uL (1.8-6.8); NEUTROPHILS % (AUTO) 90 % (42-75); PLATELET COUNT 573 x10^3/uL (130-400); RED BLOOD COUNT 4.13 x10^6/uL (3.82-5.3); RED CELL DISTRIBUTION WIDTH 17.6 % (9.6-15.2)
[2017-04-03 11:02] LABS: ALANINE AMINOTRANSFERASE 48 U/L (12-78); ALBUMIN 2.4 g/dL (3.4-5.0); ANION GAP 20 mmol/L (5-15); CALCIUM 7.4 mg/dL (8.5-10.1); CHLORIDE 97 mmol/L (98-107)
[2017-04-03 11:03] LABS: ACETONE, SERUM Moderate(40mg/dL) mg/dL (Negative)
[2017-04-03 11:05] LABS: ALKALINE PHOSPHATASE 177 U/L (45-117); BILIRUBIN,TOTAL 0.5 mg/dL (0.2-1.0); CREATININE 1.99 mg/dL (0.55-1.02); TOTAL PROTEIN 6.2 g/dL (6.4-8.2)
[2017-04-03 11:12] LABS: TROPONIN I 0.057 ng/mL (0.000-0.045)
[2017-04-03] MEDS ORDERED: POTASSIUM CHLORIDE 40 MEQ in D5%-0.9% NACL 1,000 ML IV ONE (11:41)
[2017-04-03] MEDS ORDERED: REGULAR INSULIN 62.5 UNITS in SODIUM CHLORIDE 0.9% 249.375 ML IV PRN (11:41)
[2017-04-03] MEDS ORDERED: PIPERACILLIN/TAZO/PMX 3.375GM 50 ML ONE (11:43)
[2017-04-03] MEDS ORDERED: VANCOMYCIN PER PHARMACY IV ONE (12:00)
[2017-04-03] MEDS ORDERED: PIPERACILLIN/TAZO/PMX 3.375GM 50 ML IVPB ONE (12:00)
[2017-04-03] MEDS ORDERED: PHARMACOKINETIC CONSULTATION MC ONE ×2 (12:00→14:00)
[2017-04-03] MEDS ORDERED: NOREPINEPHRINE 4 MG in SODIUM CHLORIDE 0.9% 246 ML IV PRN ×2 (12:21→13:30)
[2017-04-03] MEDS ORDERED: VANCOMYCIN 600 MG in SODIUM CHLORIDE 0.9% 100 ML IV ONE ×2 (12:30→16:30)
[2017-04-03 12:39] LABS: MICROSCOPIC AUTO
[2017-04-03 12:41] LABS: CULTURE INDICATED? NO
[2017-04-03] MEDS ORDERED: ENOXAPARIN 30 MG/0.3 ML SQ SCH (13:00)
[2017-04-03] MEDS ORDERED: TEMAZEPAM 15 MG CAPSULE PO PRN (13:00)
[2017-04-03] MEDS ORDERED: MAGNESIUM SULFATE PMX 4GM/100M 100 ML IV ONE (13:00)
[2017-04-03] MEDS ORDERED: ONDANSETRON 2MG/ML, 2ML IVPush PRN (13:00)
[2017-04-03] MEDS ORDERED: VANCOMYCIN PER PHARMACY MC PRN (13:00)
[2017-04-03] MEDS ORDERED: ACETAMINOPHEN 325 MG TABLET PO PRN (13:00)
[2017-04-03] MEDS ORDERED: POLYETHYLENE GLYCOL 17 GM PACKET PO PRN (13:00)
[2017-04-03] MEDS ORDERED: HYDROCORTISONE 100 MG INJ. IVPush SCH (13:30)
[2017-04-03 13:40] LABS: THYROID STIMULATING HORMONE 6.02 mIU/L (0.358-3.740)
[2017-04-03] MEDS ORDERED: PHARMACOKINETIC MONITORING MC PRN (14:00)
[2017-04-03] MEDS: NS + 20MEQ KCL 1,000 ML IV SCH ×2 (16:24→20:14)
[2017-04-03] MEDS: PANCRELIPASE 5000 CAPSULE.DR PO SCH (16:25)
[2017-04-03] MEDS: MIDODRINE 5 MG TABLET PO SCH ×2 (16:25→21:27)
[2017-04-03] MEDS: GABAPENTIN 300 MG CAPSULE PO SCH ×2 (16:25→21:27)
[2017-04-03] MEDS: PIPERACILLIN/TAZO/PMX 3.375GM 50 ML IV SCH ×2 (16:27→21:27)
[2017-04-03] MEDS ORDERED: PIPERACILLIN/TAZO/PMX 2.25GM 50 ML IV SCH (17:00)
[2017-04-03] MEDS: INSULIN ASPART 100 UNITS/ML, PEN SQ-INSULIN SCH ×2 (18:54→21:27)
[2017-04-03 23:01] LABS: CLOSTRIDIUM DIFFICILE ANTIGEN NEGATIVE; CLOSTRIDIUM DIFFICILE TOXIN NEGATIVE (Negative)
[2017-04-04] MEDS: NS + 20MEQ KCL 1,000 ML IV SCH ×3 (00:49→16:34)
[2017-04-04] MEDS: PIPERACILLIN/TAZO/PMX 3.375GM 50 ML IV SCH ×4 (03:21→20:55)
[2017-04-04 04:19] LABS: BASOPHILS # (AUTO) 0.03 x10^3/uL (0-0.1); BASOPHILS % (AUTO) 0 % (0-1); EOSINOPHILS # (AUTO) 0.01 x10^3/uL (0-0.4); EOSINOPHILS % (AUTO) 0 % (1-7); LYMPHOCYTES % (AUTO) 17 % (22-44); MD NO; MEAN CORPUSCULAR HEMOGLOBIN 28.1 pg (27.0-34.8); MEAN CORPUSCULAR HGB CONC 32.9 g/dL (32.4-35.8); MEAN CORPUSCULAR VOLUME 85.2 fL (80-100); MEAN PLATELET VOLUME 6.6 fL (7.4-10.4); MONOCYTES # (AUTO) 0.67 x10^3/uL (0.2-0.8); MONOCYTES % (AUTO) 5 % (2-9); NEUTROPHILS # (AUTO) 11.07 x10^3/uL (1.8-6.8); NEUTROPHILS % (AUTO) 78 % (42-75); PLATELET COUNT 568 x10^3/uL (130-400); RED BLOOD COUNT 3.59 x10^6/uL (3.82-5.3); RED CELL DISTRIBUTION WIDTH 17.7 % (9.6-15.2)
[2017-04-04 04:23] LABS: ALANINE AMINOTRANSFERASE 37 U/L (12-78); ANION GAP 7 mmol/L (5-15); CALCIUM 6.7 mg/dL (8.5-10.1); CHLORIDE 109 mmol/L (98-107); CREATININE 1.24 mg/dL (0.55-1.02)
[2017-04-04 04:26] LABS: ALKALINE PHOSPHATASE 132 U/L (45-117); BILIRUBIN,TOTAL 0.4 mg/dL (0.2-1.0); CHOL/HDL RATIO 2.3; CHOLESTEROL, TOTAL 76 mg/dL (140-239); HDL CHOL % 43 % (28-40); HDL CHOLESTEROL (DIRECT) 33 mg/dL (40-60); LDL CHOLESTEROL,CALCULATED 27 mg/dL (54-169); LDL/HDL RATIO 0.8 (0.5-3.0); TOTAL PROTEIN 5.3 g/dL (6.4-8.2); TRIGLYCERIDES 81 mg/dL (50-200); VLDL CHOLESTEROL 16 mg/dL (0-25)
[2017-04-04] MEDS: INSULIN ASPART 100 UNITS/ML, PEN SQ-INSULIN SCH ×4 (07:00→22:15)
[2017-04-04] MEDS: PANCRELIPASE 5000 CAPSULE.DR PO SCH ×3 (07:55→16:28)
[2017-04-04] MEDS: SENNA/DOCUSATE TABLET PO SCH (08:00)
[2017-04-04] MEDS: MIDODRINE 5 MG TABLET PO SCH ×3 (08:56→20:55)
[2017-04-04] MEDS: FLUDROCORTISONE 0.1 MG TABLET PO SCH (08:56)
[2017-04-04] MEDS: GABAPENTIN 300 MG CAPSULE PO SCH ×3 (08:56→20:55)
[2017-04-04] MEDS ORDERED: VANCOMYCIN 600 MG in SODIUM CHLORIDE 0.9% 100 ML IV ONE ×2 (10:00→17:00)
[2017-04-04] MEDS: CHOLESTYRAMINE LIGHT 4GM PACKET PO SCH ×2 (10:43→22:14)
[2017-04-04 10:44] LABS: CRYPTOSPORIDIUM ANTIGEN Negative (Negative)
[2017-04-04] MEDS: OXYcodone IR 5MG TABLET PO PRN ×2 (10:52→20:55)
[2017-04-04] MEDS: ENOXAPARIN 40 MG/0.4 ML SQ SCH (16:36)
[2017-04-05] MEDS: NS + 20MEQ KCL 1,000 ML IV SCH ×2 (01:42→10:38)
[2017-04-05] MEDS: PIPERACILLIN/TAZO/PMX 3.375GM 50 ML IV SCH ×3 (03:40→18:09)
[2017-04-05 06:44] LABS: BASOPHILS # (AUTO) 0.02 x10^3/uL (0-0.1); BASOPHILS % (AUTO) 0 % (0-1); EOSINOPHILS # (AUTO) 0.01 x10^3/uL (0-0.4); EOSINOPHILS % (AUTO) 0 % (1-7); LYMPHOCYTES # (AUTO) 1.23 x10^3/uL (1-3.4); LYMPHOCYTES % (AUTO) 14 % (22-44); MD NO; MEAN CORPUSCULAR HGB CONC 32.8 g/dL (32.4-35.8); MEAN CORPUSCULAR VOLUME 85.3 fL (80-100); MEAN PLATELET VOLUME 6.7 fL (7.4-10.4); MONOCYTES % (AUTO) 5 % (2-9); NEUTROPHILS # (AUTO) 7.34 x10^3/uL (1.8-6.8); NEUTROPHILS % (AUTO) 82 % (42-75); PLATELET COUNT 496 x10^3/uL (130-400); RED BLOOD COUNT 3.73 x10^6/uL (3.82-5.3); RED CELL DISTRIBUTION WIDTH 18.3 % (9.6-15.2)
[2017-04-05 06:46] LABS: ALANINE AMINOTRANSFERASE 32 U/L (12-78); ALBUMIN 1.9 g/dL (3.4-5.0); ANION GAP 9 mmol/L (5-15); CALCIUM 7.2 mg/dL (8.5-10.1); CHLORIDE 115 mmol/L (98-107); CREATININE 0.99 mg/dL (0.55-1.02)
[2017-04-05 06:48] LABS: ALKALINE PHOSPHATASE 120 U/L (45-117); BILIRUBIN,TOTAL 0.3 mg/dL (0.2-1.0); TOTAL PROTEIN 5.4 g/dL (6.4-8.2); VANCOMYCIN,RANDOM 16.1 mcg/mL
[2017-04-05] MEDS: SENNA/DOCUSATE TABLET PO SCH (07:54)
[2017-04-05] MEDS ORDERED: MAGNESIUM SULFATE PMX 4GM/100M 100 ML IV ONE ×2 (08:00→13:00)
[2017-04-05] MEDS: PANCRELIPASE 5000 CAPSULE.DR PO SCH ×3 (08:18→16:41)
[2017-04-05] MEDS: GABAPENTIN 300 MG CAPSULE PO SCH ×3 (08:19→22:11)
[2017-04-05] MEDS: MIDODRINE 5 MG TABLET PO SCH ×3 (08:19→22:11)
[2017-04-05] MEDS: FLUDROCORTISONE 0.1 MG TABLET PO SCH (08:19)
[2017-04-05] MEDS: POTASSIUM CHLORIDE 20 MEQ TAB.ER.PRT PO SCH ×2 (08:19→16:41)
[2017-04-05] MEDS: CHOLESTYRAMINE LIGHT 4GM PACKET PO SCH ×2 (08:20→22:11)
[2017-04-05] MEDS: INSULIN ASPART 100 UNITS/ML, PEN SQ-INSULIN SCH ×4 (08:22→22:18)
[2017-04-05] MEDS ORDERED: SODIUM PHOSPHATE 20 MMOL in SODIUM CHLORIDE 0.9% 500 ML IV ONE (13:00)
[2017-04-05] MEDS: VANCOMYCIN 700 MG in SODIUM CHLORIDE 0.9% 100 ML IV SCH (16:40)
[2017-04-05] MEDS: ENOXAPARIN 40 MG/0.4 ML SQ SCH (16:41)
[2017-04-05 20:41] VITALS: BP 118/79
[2017-04-05] MEDS: MAGNESIUM CHLORIDE 64 MG TABLET.DR PO SCH (22:11)
[2017-04-05] MEDS: SODIUM CHLORIDE 0.9% 1,000 ML IV SCH (22:31)
[2017-04-06] MEDS: PIPERACILLIN/TAZO/PMX 3.375GM 50 ML IV SCH ×5 (00:11→23:57)
[2017-04-06 02:00] VITALS: BP 102/67
[2017-04-06 06:29] LABS: CHLORIDE 112 mmol/L (98-107)
[2017-04-06 06:38] VITALS: BP 87/71
[2017-04-06 06:51] LABS: ANION GAP 11 mmol/L (5-15); CALCIUM 7.7 mg/dL (8.5-10.1); CREATININE 0.98 mg/dL (0.55-1.02)
[2017-04-06] MEDS: CHOLESTYRAMINE LIGHT 4GM PACKET PO SCH ×2 (07:36→20:46)
[2017-04-06] MEDS: SODIUM CHLORIDE 0.9% 1,000 ML IV SCH ×2 (08:28→20:45)
[2017-04-06] MEDS: INSULIN ASPART 100 UNITS/ML, PEN SQ-INSULIN SCH ×4 (08:29→20:46)
[2017-04-06] MEDS: MIDODRINE 5 MG TABLET PO SCH ×3 (08:29→20:46)
[2017-04-06] MEDS: GABAPENTIN 300 MG CAPSULE PO SCH ×3 (08:29→20:45)
[2017-04-06] MEDS: PANCRELIPASE 5000 CAPSULE.DR PO SCH ×3 (08:29→16:29)
[2017-04-06] MEDS: MAGNESIUM CHLORIDE 64 MG TABLET.DR PO SCH ×2 (08:29→20:46)
[2017-04-06] MEDS: SENNA/DOCUSATE TABLET PO SCH (08:31)
[2017-04-06 13:25] VITALS: BP 86/62
[2017-04-06] MEDS ORDERED: SODIUM CHLORIDE 0.9% 1,000ML IVBOLUS ONE (14:00)
[2017-04-06 16:30] VITALS: BP 102/73
[2017-04-06] MEDS: ENOXAPARIN 40 MG/0.4 ML SQ SCH (16:30)
[2017-04-06] MEDS: VANCOMYCIN 700 MG in SODIUM CHLORIDE 0.9% 100 ML IV SCH (16:30)
[2017-04-06 20:43] VITALS: BP 98/66
[2017-04-06] MEDS ORDERED: MAGNESIUM SULFATE PMX 4GM/100M 100 ML IV ONE (21:00)
[2017-04-07 03:24] VITALS: BP 98/68
[2017-04-07] MEDS: PIPERACILLIN/TAZO/PMX 3.375GM 50 ML IV SCH (05:06)
[2017-04-07 05:23] LABS: BASOPHILS # (AUTO) 0.02 x10^3/uL (0-0.1); BASOPHILS % (AUTO) 0 % (0-1); EOSINOPHILS % (AUTO) 0 % (1-7); LYMPHOCYTES # (AUTO) 1.55 x10^3/uL (1-3.4); LYMPHOCYTES % (AUTO) 17 % (22-44); MD NO; MEAN CORPUSCULAR HEMOGLOBIN 27.9 pg (27.0-34.8); MEAN CORPUSCULAR HGB CONC 32.4 g/dL (32.4-35.8); MEAN PLATELET VOLUME 6.8 fL (7.4-10.4); MONOCYTES # (AUTO) 0.35 x10^3/uL (0.2-0.8); MONOCYTES % (AUTO) 4 % (2-9); NEUTROPHILS # (AUTO) 7.28 x10^3/uL (1.8-6.8); NEUTROPHILS % (AUTO) 79 % (42-75); PLATELET COUNT 475 x10^3/uL (130-400); RED BLOOD COUNT 4.01 x10^6/uL (3.82-5.3); RED CELL DISTRIBUTION WIDTH 17.9 % (9.6-15.2)
[2017-04-07 05:30] LABS: CHLORIDE 113 mmol/L (98-107)
[2017-04-07 05:41] LABS: ALANINE AMINOTRANSFERASE 31 U/L (12-78); ALKALINE PHOSPHATASE 138 U/L (45-117); ANION GAP 9 mmol/L (5-15); BILIRUBIN,TOTAL 0.4 mg/dL (0.2-1.0); CALCIUM 7.8 mg/dL (8.5-10.1); CREATININE 0.82 mg/dL (0.55-1.02); TOTAL PROTEIN 5.6 g/dL (6.4-8.2)
[2017-04-07 06:43] VITALS: BP 92/68
[2017-04-07] MEDS: INSULIN ASPART 100 UNITS/ML, PEN SQ-INSULIN SCH ×4 (07:00→22:35)
[2017-04-07] MEDS: SODIUM CHLORIDE 0.9% 1,000 ML IV SCH ×2 (08:01→17:30)
[2017-04-07] MEDS: PANCRELIPASE 5000 CAPSULE.DR PO SCH ×3 (08:01→16:30)
[2017-04-07] MEDS: SENNA/DOCUSATE TABLET PO SCH (09:00)
[2017-04-07] MEDS: CHOLESTYRAMINE LIGHT 4GM PACKET PO SCH ×2 (09:54→22:26)
[2017-04-07] MEDS: LACTOBACILLUS 1GM/ PACKET PO SCH ×3 (09:54→22:25)
[2017-04-07] MEDS: MAGNESIUM CHLORIDE 64 MG TABLET.DR PO SCH ×2 (09:55→22:25)
[2017-04-07] MEDS: GABAPENTIN 300 MG CAPSULE PO SCH ×3 (09:55→22:25)
[2017-04-07] MEDS: MIDODRINE 5 MG TABLET PO SCH ×3 (09:55→22:26)
[2017-04-07 13:25] VITALS: BP 105/72
[2017-04-07] MEDS: ENOXAPARIN 40 MG/0.4 ML SQ SCH (16:31)
[2017-04-07 18:49] VITALS: BP 93/68
[2017-04-08 01:30] VITALS: BP 83/58
[2017-04-08] MEDS: SODIUM CHLORIDE 0.9% 1,000 ML IV SCH ×2 (04:13→14:51)
[2017-04-08] MEDS: INSULIN ASPART 100 UNITS/ML, PEN SQ-INSULIN SCH ×4 (07:00→20:22)
[2017-04-08 07:28] VITALS: BP 97/68
[2017-04-08] MEDS: SENNA/DOCUSATE TABLET PO SCH (08:08)
[2017-04-08] MEDS: GABAPENTIN 300 MG CAPSULE PO SCH ×3 (08:26→20:21)
[2017-04-08] MEDS: MIDODRINE 5 MG TABLET PO SCH ×3 (08:26→20:22)
[2017-04-08] MEDS: MAGNESIUM CHLORIDE 64 MG TABLET.DR PO SCH ×2 (08:26→20:22)
[2017-04-08] MEDS: CHOLESTYRAMINE LIGHT 4GM PACKET PO SCH ×2 (08:27→20:22)
[2017-04-08] MEDS: PANCRELIPASE 5000 CAPSULE.DR PO SCH ×3 (08:27→16:35)
[2017-04-08] MEDS: LACTOBACILLUS 1GM/ PACKET PO SCH ×3 (08:27→20:43)
[2017-04-08 12:31] VITALS: BP 101/73
[2017-04-08] MEDS: ENOXAPARIN 40 MG/0.4 ML SQ SCH (16:35)
[2017-04-08 18:45] VITALS: BP 93/67
[2017-04-09] MEDS: SODIUM CHLORIDE 0.9% 1,000 ML IV SCH ×2 (00:19→08:24)
[2017-04-09 03:45] VITALS: BP 103/71
[2017-04-09 05:05] LABS: BASOPHILS # (AUTO) 0.03 x10^3/uL (0-0.1); BASOPHILS % (AUTO) 0 % (0-1); EOSINOPHILS % (AUTO) 0 % (1-7); LYMPHOCYTES # (AUTO) 1.14 x10^3/uL (1-3.4); LYMPHOCYTES % (AUTO) 10 % (22-44); MD NO; MEAN CORPUSCULAR HEMOGLOBIN 28.2 pg (27.0-34.8); MEAN CORPUSCULAR VOLUME 85.3 fL (80-100); MEAN PLATELET VOLUME 6.7 fL (7.4-10.4); MONOCYTES # (AUTO) 0.55 x10^3/uL (0.2-0.8); MONOCYTES % (AUTO) 5 % (2-9); NEUTROPHILS # (AUTO) 9.68 x10^3/uL (1.8-6.8); NEUTROPHILS % (AUTO) 85 % (42-75); PLATELET COUNT 424 x10^3/uL (130-400); RED BLOOD COUNT 3.71 x10^6/uL (3.82-5.3); RED CELL DISTRIBUTION WIDTH 18.3 % (9.6-15.2)
[2017-04-09 05:08] LABS: ANION GAP 7 mmol/L (5-15); CALCIUM 7.9 mg/dL (8.5-10.1); CHLORIDE 118 mmol/L (98-107); CREATININE 0.58 mg/dL (0.55-1.02)
[2017-04-09 08:16] VITALS: BP 95/63
[2017-04-09] MEDS: MIDODRINE 5 MG TABLET PO SCH ×3 (08:21→21:02)
[2017-04-09] MEDS: MAGNESIUM CHLORIDE 64 MG TABLET.DR PO SCH ×2 (08:21→21:02)
[2017-04-09] MEDS: INSULIN ASPART 100 UNITS/ML, PEN SQ-INSULIN SCH ×4 (08:21→21:03)
[2017-04-09] MEDS: GABAPENTIN 300 MG CAPSULE PO SCH ×3 (08:21→21:02)
[2017-04-09] MEDS: PANCRELIPASE 5000 CAPSULE.DR PO SCH ×3 (08:21→17:10)
[2017-04-09] MEDS: LACTOBACILLUS 1GM/ PACKET PO SCH ×3 (08:21→21:02)
[2017-04-09] MEDS: CHOLESTYRAMINE LIGHT 4GM PACKET PO SCH (08:21)
[2017-04-09] MEDS ORDERED: MAGNESIUM SULFATE PMX 4GM/100M 100 ML IV ONE (13:30)
[2017-04-09 14:26] VITALS: BP 102/68
[2017-04-09] MEDS ORDERED: SODIUM CHLORIDE 0.9% 1,000ML IVBOLUS ONE ×2 (16:00→17:00)
[2017-04-09] MEDS: ENOXAPARIN 40 MG/0.4 ML SQ SCH (17:09)
[2017-04-09 18:59] VITALS: BP 125/68
[2017-04-10] MEDS: SODIUM CHLORIDE 0.9% 1,000 ML IV SCH ×3 (00:35→18:29)
[2017-04-10 05:47] VITALS: BP 103/68
[2017-04-10 07:15] VITALS: BP 94/67
[2017-04-10] MEDS: INSULIN ASPART 100 UNITS/ML, PEN SQ-INSULIN SCH ×4 (08:24→20:43)
[2017-04-10] MEDS: PANCRELIPASE 5000 CAPSULE.DR PO SCH ×3 (09:29→17:34)
[2017-04-10] MEDS: GABAPENTIN 300 MG CAPSULE PO SCH ×3 (09:30→20:22)
[2017-04-10] MEDS: LACTOBACILLUS 1GM/ PACKET PO SCH ×3 (09:30→20:22)
[2017-04-10] MEDS: MIDODRINE 5 MG TABLET PO SCH ×3 (09:30→20:22)
[2017-04-10] MEDS: MAGNESIUM CHLORIDE 64 MG TABLET.DR PO SCH ×2 (09:30→20:22)
[2017-04-10] MEDS: LOPERAMIDE 1 MG/5 ML, 10ML UDC PO SCH ×3 (12:05→23:39)
[2017-04-10 12:32] LABS: ANION GAP 8 mmol/L (5-15); CALCIUM 7.8 mg/dL (8.5-10.1); CHLORIDE 117 mmol/L (98-107); CREATININE 0.52 mg/dL (0.55-1.02)
[2017-04-10 13:20] VITALS: BP 90/57
[2017-04-10] MEDS: ENOXAPARIN 40 MG/0.4 ML SQ SCH (16:32)
[2017-04-10] MEDS ORDERED: SODIUM CHLORIDE 0.9% 1,000ML IVBOLUS ONE (18:00)
[2017-04-10] MEDS ORDERED: MAGNESIUM SULFATE PMX 4GM/100M 100 ML IV ONE (18:00)
[2017-04-10] MEDS ORDERED: POTASSIUM CHLORIDE 20 MEQ TAB.ER.PRT PO ONE (18:00)
[2017-04-10 18:05] VITALS: BP 87/59
[2017-04-10 19:50] VITALS: BP 102/73
[2017-04-11 01:11] VITALS: BP 89/57
[2017-04-11 02:53] VITALS: BP 98/69
[2017-04-11] MEDS ORDERED: METOCLOPRAMIDE 5 MG/ML, 2ML IVPush PRN (03:30)
[2017-04-11] MEDS: LOPERAMIDE 1 MG/5 ML, 10ML UDC PO SCH ×4 (04:27→23:30)
[2017-04-11] MEDS: SODIUM CHLORIDE 0.9% 1,000 ML IV SCH (04:28)
[2017-04-11] MEDS: INSULIN ASPART 100 UNITS/ML, PEN SQ-INSULIN SCH ×4 (07:00→23:06)
[2017-04-11] MEDS: PANCRELIPASE 5000 CAPSULE.DR PO SCH ×3 (07:00→16:00)
[2017-04-11] MEDS ORDERED: OMNIPAQUE 350 MG/ML, 75ML BOTTLE ONE (07:03)
[2017-04-11 07:58] VITALS: BP 93/62
[2017-04-11] MEDS: GABAPENTIN 300 MG CAPSULE PO SCH ×3 (09:00→23:07)
[2017-04-11] MEDS: LACTOBACILLUS 1GM/ PACKET PO SCH ×3 (09:00→23:07)
[2017-04-11] MEDS: MAGNESIUM CHLORIDE 64 MG TABLET.DR PO SCH ×2 (09:00→23:07)
[2017-04-11] MEDS: MIDODRINE 5 MG TABLET PO SCH ×3 (09:00→23:07)
[2017-04-11] MEDS ORDERED: MAGNESIUM SULFATE PMX 2GM/50ML 50 ML IV ONE (10:00)
[2017-04-11] MEDS: NS + 40MEQ KCL 1,000 ML IV SCH ×2 (12:16→23:23)
[2017-04-11 14:46] VITALS: BP 89/57
[2017-04-11 19:30] VITALS: BP 97/67
[2017-04-12 01:13] VITALS: BP 94/63
[2017-04-12] MEDS: LOPERAMIDE 1 MG/5 ML, 10ML UDC PO SCH (05:30)
[2017-04-12 05:36] LABS: BASOPHILS # (AUTO) 0.01 x10^3/uL (0-0.1); BASOPHILS % (AUTO) 0 % (0-1); EOSINOPHILS # (AUTO) 0.02 x10^3/uL (0-0.4); EOSINOPHILS % (AUTO) 0 % (1-7); LYMPHOCYTES # (AUTO) 1.05 x10^3/uL (1-3.4); LYMPHOCYTES % (AUTO) 7 % (22-44); MD NO; MEAN CORPUSCULAR HEMOGLOBIN 27.9 pg (27.0-34.8); MEAN CORPUSCULAR HGB CONC 32.6 g/dL (32.4-35.8); MEAN CORPUSCULAR VOLUME 85.6 fL (80-100); MEAN PLATELET VOLUME 6.6 fL (7.4-10.4); MONOCYTES % (AUTO) 5 % (2-9); NEUTROPHILS # (AUTO) 13.22 x10^3/uL (1.8-6.8); NEUTROPHILS % (AUTO) 88 % (42-75); PLATELET COUNT 452 x10^3/uL (130-400); RED BLOOD COUNT 3.31 x10^6/uL (3.82-5.3); RED CELL DISTRIBUTION WIDTH 17.6 % (9.6-15.2)
[2017-04-12 05:44] LABS: CHLORIDE 117 mmol/L (98-107)
[2017-04-12 05:50] LABS: ANION GAP 10 mmol/L (5-15); CALCIUM 8.2 mg/dL (8.5-10.1); CREATININE 0.52 mg/dL (0.55-1.02)
[2017-04-12 07:49] VITALS: BP 103/73
[2017-04-12] MEDS: MAGNESIUM CHLORIDE 64 MG TABLET.DR PO SCH ×2 (09:00→21:19)
[2017-04-12] MEDS: INSULIN ASPART 100 UNITS/ML, PEN SQ-INSULIN SCH ×4 (09:06→21:10)
[2017-04-12] MEDS: PANCRELIPASE 5000 CAPSULE.DR PO SCH ×3 (09:11→16:00)
[2017-04-12] MEDS: GABAPENTIN 300 MG CAPSULE PO SCH ×3 (09:11→21:19)
[2017-04-12] MEDS: MIDODRINE 5 MG TABLET PO SCH ×3 (09:11→21:19)
[2017-04-12] MEDS: LACTOBACILLUS 1GM/ PACKET PO SCH ×3 (09:12→21:19)
[2017-04-12] MEDS ORDERED: MAGNESIUM SULFATE PMX 4GM/100M 100 ML IV ONE (11:00)
[2017-04-12] MEDS: NS + 40MEQ KCL 1,000 ML IV SCH (12:20)
[2017-04-12 12:57] VITALS: BP 95/56
[2017-04-12] MEDS: NEUTRA PHOS K 250 MG TABLET PO SCH ×2 (16:00→21:19)
[2017-04-12] MEDS: POTASSIUM CHLORIDE 20 MEQ TAB.ER.PRT PO SCH (16:34)
[2017-04-12 18:58] VITALS: BP 96/65
[2017-04-13 02:59] VITALS: BP 100/66
[2017-04-13] MEDS: NS + 40MEQ KCL 1,000 ML IV SCH (03:04)
[2017-04-13 06:57] VITALS: BP_SYST 116; BP_SYST 177; BP_DIAS 82; BP_DIAS 86
[2017-04-13] MEDS: PANCRELIPASE 5000 CAPSULE.DR PO SCH ×3 (07:00→16:00)
[2017-04-13] MEDS: POTASSIUM CHLORIDE 20 MEQ TAB.ER.PRT PO SCH (08:00)
[2017-04-13] MEDS: INSULIN ASPART 100 UNITS/ML, PEN SQ-INSULIN SCH ×4 (08:40→19:53)
[2017-04-13] MEDS: MIDODRINE 5 MG TABLET PO SCH ×3 (08:41→19:54)
[2017-04-13] MEDS: MAGNESIUM CHLORIDE 64 MG TABLET.DR PO SCH ×2 (08:41→19:54)
[2017-04-13] MEDS: GABAPENTIN 300 MG CAPSULE PO SCH ×3 (08:41→19:54)
[2017-04-13] MEDS: LACTOBACILLUS 1GM/ PACKET PO SCH ×3 (08:41→19:54)
[2017-04-13] MEDS: NEUTRA PHOS K 250 MG TABLET PO SCH ×4 (08:41→19:54)
[2017-04-13 10:47] LABS: ANION GAP 6 mmol/L (5-15); CALCIUM 7.6 mg/dL (8.5-10.1); CHLORIDE 113 mmol/L (98-107); CREATININE 0.42 mg/dL (0.55-1.02)
[2017-04-13 10:48] LABS: BASOPHILS # (AUTO) 0.02 x10^3/uL (0-0.1); BASOPHILS % (AUTO) 0 % (0-1); EOSINOPHILS # (AUTO) 0.02 x10^3/uL (0-0.4); EOSINOPHILS % (AUTO) 0 % (1-7); LYMPHOCYTES % (AUTO) 10 % (22-44); MD NO; MEAN CORPUSCULAR HEMOGLOBIN 28.5 pg (27.0-34.8); MEAN CORPUSCULAR HGB CONC 33.3 g/dL (32.4-35.8); MEAN CORPUSCULAR VOLUME 85.8 fL (80-100); MEAN PLATELET VOLUME 6.3 fL (7.4-10.4); MONOCYTES # (AUTO) 0.44 x10^3/uL (0.2-0.8); MONOCYTES % (AUTO) 4 % (2-9); NEUTROPHILS # (AUTO) 8.45 x10^3/uL (1.8-6.8); NEUTROPHILS % (AUTO) 85 % (42-75); PLATELET COUNT 489 x10^3/uL (130-400); RED BLOOD COUNT 3.24 x10^6/uL (3.82-5.3); RED CELL DISTRIBUTION WIDTH 17.9 % (9.6-15.2)
[2017-04-13 13:57] VITALS: BP 118/82
[2017-04-13] MEDS ORDERED: NS + 40MEQ KCL 1,000 ML IV SCH (14:00)
[2017-04-13] MEDS ORDERED: MAGNESIUM SULFATE PMX 4GM/100M 100 ML IV ONE (17:00)
[2017-04-13] MEDS ORDERED: PHENOL THROAT SPRAY BOTTLE MM PRN (19:00)
[2017-04-13] MEDS: POTASSIUM CHLORIDE 40 MEQ in SODIUM CHLORIDE 0.45% 1,000 ML IV SCH (19:50)
[2017-04-13 21:21] VITALS: BP 99/70
[2017-04-14 03:46] VITALS: BP 107/77
[2017-04-14] MEDS: POTASSIUM CHLORIDE 40 MEQ in SODIUM CHLORIDE 0.45% 1,000 ML IV SCH (05:21)
[2017-04-14 05:58] LABS: BASOPHILS # (AUTO) 0.01 x10^3/uL (0-0.1); BASOPHILS % (AUTO) 0 % (0-1); EOSINOPHILS # (AUTO) 0.02 x10^3/uL (0-0.4); EOSINOPHILS % (AUTO) 0 % (1-7); LYMPHOCYTES % (AUTO) 14 % (22-44); MD NO; MEAN CORPUSCULAR HEMOGLOBIN 28.6 pg (27.0-34.8); MEAN CORPUSCULAR HGB CONC 33.3 g/dL (32.4-35.8); MONOCYTES # (AUTO) 0.31 x10^3/uL (0.2-0.8); MONOCYTES % (AUTO) 3 % (2-9); NEUTROPHILS # (AUTO) 7.64 x10^3/uL (1.8-6.8); NEUTROPHILS % (AUTO) 82 % (42-75); PLATELET COUNT 498 x10^3/uL (130-400); RED BLOOD COUNT 3.52 x10^6/uL (3.82-5.3); RED CELL DISTRIBUTION WIDTH 18.1 % (9.6-15.2)
[2017-04-14 06:03] LABS: ANION GAP 8 mmol/L (5-15); CALCIUM 8.1 mg/dL (8.5-10.1); CHLORIDE 108 mmol/L (98-107)
[2017-04-14 06:04] LABS: CREATININE 0.36 mg/dL (0.55-1.02)
[2017-04-14 06:34] VITALS: BP_SYST 109; BP_SYST 184; BP_DIAS 103; BP_DIAS 81
[2017-04-14] MEDS: INSULIN ASPART 100 UNITS/ML, PEN SQ-INSULIN SCH ×2 (07:00→11:00)
[2017-04-14] MEDS: PANCRELIPASE 5000 CAPSULE.DR PO SCH ×2 (07:00→11:00)
[2017-04-14 08:40] VITALS: BP 90/65
[2017-04-14] MEDS: GABAPENTIN 300 MG CAPSULE PO SCH (09:00)
[2017-04-14] MEDS: MAGNESIUM CHLORIDE 64 MG TABLET.DR PO SCH (09:00)
[2017-04-14] MEDS: NEUTRA PHOS K 250 MG TABLET PO SCH (09:00)
[2017-04-14] MEDS: MIDODRINE 5 MG TABLET PO SCH (09:00)
[2017-04-14] MEDS: LACTOBACILLUS 1GM/ PACKET PO SCH (09:00)
[2017-04-14] MEDS ORDERED: LIDOCAINE 2% VISCOUS 15 ML UDC MM PRN (10:00)
== END 2017-04-14 13:31 | disposition left against medical advice (07) | DRG 871 ==
LOC: ED 12:45 → EDIP 13:04 → CCU 13:44 → 4WST 04-05 16:10
PROVIDERS: ADMIT Internal Medicine; ATTEND Internal Medicine
PROC: 02HV33Z Insertion of Infusion Device into Superior Vena Cava, Percutaneous Approach (ICD-10-PCS; principal; 2017-04-03)
DX: A41.9 Sepsis, unspecified organism (principal); N17.0 Acute kidney failure with tubular necrosis; R57.1 Hypovolemic shock; E43 Unspecified severe protein-calorie malnutrition; E10.10 Type 1 diabetes mellitus with ketoacidosis without coma; R64 Cachexia; I95.89 Other hypotension; J90 Pleural effusion, not elsewhere classified; K56.609 Unspecified intestinal obstruction, unspecified as to partial versus complete obstruction; E83.42 Hypomagnesemia; Z68.1 Body mass index [BMI] 19.9 or less, adult; Z53.21 Procedure and treatment not carried out due to patient leaving prior to being seen by health care provider; E10.42 Type 1 diabetes mellitus with diabetic polyneuropathy; E10.649 Type 1 diabetes mellitus with hypoglycemia without coma; E87.6 Hypokalemia; F32.9 Major depressive disorder, single episode, unspecified; F41.9 Anxiety disorder, unspecified; R56.9 Unspecified convulsions; Z79.4 Long term (current) use of insulin; Z83.3 Family history of diabetes mellitus
CPT/HCPCS: 36415; 70450; 71010; 74018; 74022; 74177; 80048; 80053; 80061; 80202; 81001; 82010; 82306; 82330; 82533; 82803; 82962; 83605; 83690; 83735; 84100; 84145; 84443; 84484; 85025; 87040; 87046; 87081; 87324; 87328; 87329; 93005; 96361; 96365; 96375; J1650; J1815; J2405; J2543; J3370; J3480; Q9967; 92523-GN; J2765; J3475; J7030; J7040; J7050